=== PATIENT | female | born 1945 | race Two or more races ===

== ENCOUNTER 2020-10-27 14:37 | Inpatient (IN) | payer OTHER ==
[2020-10-27] MEDS ORDERED: VANCOMYCIN 1 GM in D5W (PRE-DOCKED) 1,000 MG/250 ML IVPB ONE (17:20)
[2020-10-27] MEDS ORDERED: PIPERACILLIN/TAZOB 3.375 GM 3.375 GM in DEXTROSE 5%-WATER - 50 ML IVPB ONE (17:22)
[2020-10-27] MEDS ORDERED: ACETAMINOPHEN 1000 MG/100 ML VIAL (NON FORMULARY) IVPB ONE (17:31)
[2020-10-27] MEDS ORDERED: VANCOMYCIN 1 GRAM (PRE-DOCKED) 1,000 MG/250 ML BAG IVPB ONE (17:40)
[2020-10-27] MEDS ORDERED: PIPERACILLIN/TAZOB 3.375 GM 3.375 GM/50 ML BAG IVPB ONE (17:40)
[2020-10-27] MEDS ORDERED: ACETAMINOPHEN INJECTION 100 ML IVPB ONE (19:55)
[2020-10-27 20:10] LABS: INR 1.06 (0.83-1.09)
[2020-10-27 20:13] LABS: ACTIVATED PTT 33.3 SECONDS (25.2-36.5)
[2020-10-27 20:18] LABS: BASO % 0.4 % (0-2.0); EOS % 0.3 % (0-4.5); HEMATOCRIT 31.3 % (32.4-45.2); HEMOGLOBIN 10.2 GM/dL (10.7-15.3); LYMPH % 33.8 % (8-40); MCH 26.8 pg (25.7-33.7); MCHC 32.7 g/dl (32.0-36.0); MEAN PLT VOLUME 8.2 fl (7.5-11.1); MONO % 5.5 % (3.8-10.2); PLATELET COUNT 275 10^3/uL (134-434); RBC 3.82 M/mm3 (3.60-5.2); RDW 16.5 % (11.6-15.6); WHITE BLOOD COUNT 10.6 K/mm3 (4.0-10.0)
[2020-10-27 20:21] LABS: CHLORIDE 102 mmol/L (98-107); SODIUM 138 mmol/L (136-145)
[2020-10-27 20:23] LABS: ALBUMIN 3.5 g/dl (3.4-5.0); ANION GAP 9 MMOL/L (8-16); CALCIUM 9.1 mg/dL (8.5-10.1); CO2 28 mmol/L (21-32)
[2020-10-27 20:24] LABS: GLUCOSE,RANDOM 121 mg/dL (74-106)
[2020-10-27 20:26] LABS: CREATININE 1.1 mg/dL (0.55-1.3); SGOT/AST 19 U/L (15-37); SGPT/ALT 19 U/L (13-61); URIC ACID 5.7 mg/dL (2.6-7.2)
[2020-10-27 20:28] LABS: BILIRUBIN,TOTAL 0.4 mg/dL (0.2-1); TOT PROT 7.9 g/dl (6.4-8.2)
[2020-10-27 20:29] LABS: ALK PHOS 89 U/L (45-117)
[2020-10-27] MEDS ORDERED: POLYETHYLENE GLYCOL 3350 119 GM BTL PO PRN (22:55)
[2020-10-28] MEDS ORDERED: ACETAMINOPHEN 325 MG TABLET (FP) PO PRN (01:00)
[2020-10-28] MEDS ORDERED: ALBUTEROL SO4 HFA INHALER IH PRN (01:52)
[2020-10-28] MEDS ORDERED: guaiFENesin/D-M SUGAR-FREE/ACLHOL-FREE 118 ML BOTTLE PO PRN (04:01)
[2020-10-28] MEDS ORDERED: ONDANSETRON *ODT* 4 MG TABLET SL PRN (04:03)
[2020-10-28] MEDS ORDERED: hydrALAZINE HCL 20 MG/ML VIAL IVPUSH PRN (04:59)
[2020-10-28] MEDS ORDERED: VANCOMYCIN 1 GRAM (PRE-DOCKED) 1,000 MG/250 ML BAG IVPB SCH ×3 (05:00→10:00)
[2020-10-28] MEDS ORDERED: HEPARIN NA (PORCINE) 5,000 UNITS/ML 1ML VIAL ONE (06:25)
[2020-10-28] MEDS ORDERED: PIPERACILLIN/TAZOB 3.375 GM 3.375 GM/50 ML BAG IVPB ONE (06:26)
[2020-10-28] MEDS: HEPARIN NA (PORCINE) 5,000 UNITS/ML 1ML VIAL SQ SCH ×3 (06:55→21:52)
[2020-10-28] MEDS: PIPERACILLIN/TAZOB 3.375 GM 3.375 GM in DEXTROSE 5%-WATER - 50 ML IVPB SCH ×4 (06:55→17:28)
[2020-10-28 07:55] LABS: BASO % 0.4 % (0-2.0); HEMATOCRIT 30.3 % (32.4-45.2); HEMOGLOBIN 9.8 GM/dL (10.7-15.3); LYMPH % 33.4 % (8-40); MCH 26.9 pg (25.7-33.7); MCHC 32.5 g/dl (32.0-36.0); MEAN CELL VOLUME 82.8 fl (80-96); MONO % 8.1 % (3.8-10.2); NEUT % 57.1 % (42.8-82.8); PLATELET COUNT 225 10^3/uL (134-434); RBC 3.66 M/mm3 (3.60-5.2); RDW 16.3 % (11.6-15.6); WHITE BLOOD COUNT 6.3 K/mm3 (4.0-10.0)
[2020-10-28 08:17] LABS: BLOOD UREA NITROGEN 12.1 mg/dL (7-18); CALCIUM 8.8 mg/dL (8.5-10.1)
[2020-10-28 08:21] LABS: CREATININE 0.9 mg/dL (0.55-1.3)
[2020-10-28] MEDS ORDERED: VANCOMYCIN 1 GM in D5W (PRE-DOCKED) 1,000 MG/250 ML IVPB SCH (10:00)
[2020-10-28] MEDS ORDERED: ESCITALOPRAM OXALATE 10 MG TABLET ONE (10:52)
[2020-10-28] MEDS ORDERED: DEXTROSE 5%-WATER - 50 ML IVPB ONE ×2 (10:53→17:21)
[2020-10-28] MEDS ORDERED: PIPERACILLIN/TAZOBACTAM 3.375 GM VIAL IVPB ONE ×2 (10:53→17:21)
[2020-10-28] MEDS: metoPROLOL SUCCINATE 25 MG TAB.SR.24H (FP) PO SCH (11:05)
[2020-10-28] MEDS: FERROUS SO4 325 MG TABLET (FP) PO SCH (11:05)
[2020-10-28] MEDS: ALLOPURINOL 100 MG TABLET (FP) PO SCH (11:05)
[2020-10-28] MEDS: LOSARTAN POTASSIUM 50 MG TABLET PO SCH (11:06)
[2020-10-28] MEDS: SOLIFENACIN SUCCINATE 5 MG TAB PO SCH (11:06)
[2020-10-28] MEDS: FUROSEMIDE 40 MG TABLET (FP) PO SCH (11:06)
[2020-10-28] MEDS: ASPIRIN 81 MG CHEWABLE TABLETS PO SCH (11:06)
[2020-10-28] MEDS: ROSUVASTATIN CA 40 MG TABLET PO SCH (11:06)
[2020-10-28] MEDS: PANTOPRAZOLE 40 MG TABLET PO SCH (11:06)
[2020-10-28] MEDS: ESCITALOPRAM OXALATE 20 MG TABLET PO SCH (11:07)
[2020-10-28] MEDS: LIDOCAINE 5% TOPICAL PATCH TP SCH (11:07)
[2020-10-28] MEDS: MAGNESIUM OXIDE 400 MG TABLET (FP) PO SCH (11:10)
[2020-10-28] MEDS: amLODIPine BESYLATE 5 MG TABLET (FP) PO SCH (11:10)
[2020-10-28] MEDS ORDERED: PT OWN MED DRAWER 7, Y5N ONE ×2 (11:20→18:15)
[2020-10-28] MEDS ORDERED: COLCHICINE 0.6 MG CAP PO ONE (11:32)
[2020-10-28 11:39] VITALS: BMI 37.0
[2020-10-28] MEDS: INSULIN SLIDING SCALE (NOVOLOG) 1 VIAL SQ SCH ×4 (11:57→22:05)
[2020-10-28] MEDS: LEVOTHYROXINE NA 150 MCG TABLET PO SCH (11:58)
[2020-10-28] MEDS: ROFLUMILAST 500 MCG TABLET PO SCH (13:33)
[2020-10-28] MEDS ORDERED: COLCHICINE 0.6 MG TAB PO ONE (15:00)
[2020-10-28] MEDS ORDERED: ARIPiprazole 5 MG TABLET ONE (20:43)
[2020-10-28] MEDS: MONTELUKAST NA 10 MG TABLET PO SCH (21:49)
[2020-10-28] MEDS: ARIPiprazole 10 MG TABLET PO SCH (21:49)
[2020-10-28] MEDS: MIRTAZAPINE 15 MG TABLET (FP) PO SCH (21:50)
[2020-10-28] MEDS: LIDOCAINE PATCH REMOVAL MC SCH (21:53)
[2020-10-28] MEDS: AMMONIUM LACTATE 12% LOTION 225 GM BOTTLE TP SCH (21:53)
[2020-10-28] MEDS: MELATONIN 1 MG TABLET PO SCH (21:53)
[2020-10-29] MEDS ORDERED: PIPERACILLIN/TAZOBACTAM 3.375 GM VIAL IVPB ONE ×4 (01:11→19:58)
[2020-10-29] MEDS ORDERED: DEXTROSE 5%-WATER - 50 ML IVPB ONE ×4 (01:12→19:58)
[2020-10-29] MEDS: PIPERACILLIN/TAZOB 3.375 GM 3.375 GM in DEXTROSE 5%-WATER - 50 ML IVPB SCH ×3 (01:15→20:23)
[2020-10-29] MEDS: LEVOTHYROXINE NA 150 MCG TABLET PO SCH (06:22)
[2020-10-29] MEDS: HEPARIN NA (PORCINE) 5,000 UNITS/ML 1ML VIAL SQ SCH ×3 (06:22→22:10)
[2020-10-29] MEDS: INSULIN SLIDING SCALE (NOVOLOG) 1 VIAL SQ SCH ×4 (06:31→23:05)
[2020-10-29] MEDS ORDERED: PT OWN MED DRAWER 7, Y5N ONE ×4 (08:09→18:32)
[2020-10-29] MEDS ORDERED: ESCITALOPRAM OXALATE 10 MG TABLET ONE (09:36)
[2020-10-29] MEDS: ASPIRIN 81 MG CHEWABLE TABLETS PO SCH (09:48)
[2020-10-29] MEDS: LOSARTAN POTASSIUM 50 MG TABLET PO SCH (09:49)
[2020-10-29] MEDS: ROSUVASTATIN CA 40 MG TABLET PO SCH (09:50)
[2020-10-29] MEDS: ROFLUMILAST 500 MCG TABLET PO SCH (09:50)
[2020-10-29] MEDS: FUROSEMIDE 40 MG TABLET (FP) PO SCH (09:51)
[2020-10-29] MEDS: FERROUS SO4 325 MG TABLET (FP) PO SCH (09:51)
[2020-10-29] MEDS: INDOMETHACIN 50 MG CAPSULE PO SCH ×3 (09:51→18:36)
[2020-10-29] MEDS: ESCITALOPRAM OXALATE 20 MG TABLET PO SCH (09:52)
[2020-10-29] MEDS: metoPROLOL SUCCINATE 25 MG TAB.SR.24H (FP) PO SCH (09:53)
[2020-10-29] MEDS: MAGNESIUM OXIDE 400 MG TABLET (FP) PO SCH (09:53)
[2020-10-29] MEDS: PANTOPRAZOLE 40 MG TABLET PO SCH (09:53)
[2020-10-29] MEDS: amLODIPine BESYLATE 5 MG TABLET (FP) PO SCH (09:53)
[2020-10-29] MEDS: ALLOPURINOL 100 MG TABLET (FP) PO SCH (09:53)
[2020-10-29] MEDS: LIDOCAINE 5% TOPICAL PATCH TP SCH (09:56)
[2020-10-29] MEDS: SOLIFENACIN SUCCINATE 5 MG TAB PO SCH (10:21)
[2020-10-29] MEDS: COLCHICINE 0.6 MG CAP PO SCH (11:31)
[2020-10-29] MEDS ORDERED: IRON SUCROSE INJECTION 300 MG in SODIUM CHLORIDE 235 ML IVPB ONE (15:00)
[2020-10-29] MEDS ORDERED: ARIPiprazole 5 MG TABLET ONE (20:46)
[2020-10-29] MEDS: AMMONIUM LACTATE 12% LOTION 225 GM BOTTLE TP SCH (22:10)
[2020-10-29] MEDS: LIDOCAINE PATCH REMOVAL MC SCH (22:10)
[2020-10-29] MEDS: MONTELUKAST NA 10 MG TABLET PO SCH (22:10)
[2020-10-29] MEDS: MELATONIN 1 MG TABLET PO SCH (23:05)
[2020-10-29] MEDS: ARIPiprazole 10 MG TABLET PO SCH (23:05)
[2020-10-29] MEDS: MIRTAZAPINE 15 MG TABLET (FP) PO SCH (23:05)
[2020-10-30] MEDS ORDERED: PIPERACILLIN/TAZOBACTAM 3.375 GM VIAL IVPB ONE ×2 (02:31→09:01)
[2020-10-30] MEDS ORDERED: DEXTROSE 5%-WATER - 50 ML IVPB ONE ×2 (02:31→09:01)
[2020-10-30] MEDS: PIPERACILLIN/TAZOB 3.375 GM 3.375 GM in DEXTROSE 5%-WATER - 50 ML IVPB SCH ×2 (02:44→09:35)
[2020-10-30] MEDS: HEPARIN NA (PORCINE) 5,000 UNITS/ML 1ML VIAL SQ SCH ×3 (06:48→14:27)
[2020-10-30] MEDS: LEVOTHYROXINE NA 150 MCG TABLET PO SCH (06:49)
[2020-10-30] MEDS: INSULIN SLIDING SCALE (NOVOLOG) 1 VIAL SQ SCH ×2 (07:04→12:23)
[2020-10-30] MEDS ORDERED: ESCITALOPRAM OXALATE 10 MG TABLET ONE (08:54)
[2020-10-30] MEDS: INDOMETHACIN 50 MG CAPSULE PO SCH ×2 (09:27→12:32)
[2020-10-30] MEDS: SOLIFENACIN SUCCINATE 5 MG TAB PO SCH (09:27)
[2020-10-30] MEDS: LIDOCAINE 5% TOPICAL PATCH TP SCH (09:27)
[2020-10-30] MEDS: FUROSEMIDE 40 MG TABLET (FP) PO SCH (09:28)
[2020-10-30] MEDS: PANTOPRAZOLE 40 MG TABLET PO SCH (09:28)
[2020-10-30] MEDS: FERROUS SO4 325 MG TABLET (FP) PO SCH (09:28)
[2020-10-30] MEDS: ALLOPURINOL 100 MG TABLET (FP) PO SCH (09:28)
[2020-10-30] MEDS: MAGNESIUM OXIDE 400 MG TABLET (FP) PO SCH (09:28)
[2020-10-30] MEDS: LOSARTAN POTASSIUM 50 MG TABLET PO SCH (09:28)
[2020-10-30] MEDS: ROSUVASTATIN CA 40 MG TABLET PO SCH (09:32)
[2020-10-30] MEDS: ESCITALOPRAM OXALATE 20 MG TABLET PO SCH (09:34)
[2020-10-30] MEDS: ROFLUMILAST 500 MCG TABLET PO SCH (09:34)
[2020-10-30] MEDS: metoPROLOL SUCCINATE 25 MG TAB.SR.24H (FP) PO SCH (09:35)
[2020-10-30] MEDS: amLODIPine BESYLATE 5 MG TABLET (FP) PO SCH (09:35)
[2020-10-30] MEDS: ASPIRIN 81 MG CHEWABLE TABLETS PO SCH (12:24)
[2020-10-30] MEDS: COLCHICINE 0.6 MG CAP PO SCH (12:25)
[2020-10-30 14:27] VITALS: BP 134/72; PULSE 63; TEMP 98.2
[2020-10-30] MEDS ORDERED: AMOX TR/POT CLAV 500MG/125MG TABLETS (FP) PO SCH (17:30)
== END 2020-10-30 17:36 | disposition home or self-care (01) | DRG 603 ==
LOC: JER 14:37 → JERBED 22:25 → J8W 10-28 09:33
PROVIDERS: ADMIT Internal Medicine; ATTEND Family Medicine
DX: L03.115 Cellulitis of right lower limb (principal); M10.9 Gout, unspecified; E11.9 Type 2 diabetes mellitus without complications; E03.9 Hypothyroidism, unspecified; I10 Essential (primary) hypertension; E78.5 Hyperlipidemia, unspecified
CPT/HCPCS: 36415; 71045-TC-FY; 80048; 80053; 82728; 82962; 83540; 83550; 84443; 84484; 84550; 85025; 85610; 85730; 86850; 86900; 86901; 87040; 93005; 93010; 93971-TC; 99285-25; C9803; J0131; J1644; J1756; U0003; U0005

== ENCOUNTER 2021-12-07 09:55 | Emergency (ER) | payer OTHER ==
[2021-12-07 10:04] VITALS: BP 144/70; PULSE 71; RESP 20; TEMP 97.6; BMI 35.5
== END 2021-12-07 11:11 | disposition home or self-care (01) ==
LOC: JERFT 09:55
DX: G56.02 Carpal tunnel syndrome, left upper limb (principal)
CPT/HCPCS: 99281-25; G0463-25

== ENCOUNTER 2022-03-09 11:14 | Inpatient (IN) | payer OTHER ==
[2022-03-09] MEDS ORDERED: LACTATED RINGERS SOLUTION 1000 ML INFUS.BAG IV ONE (12:49)
[2022-03-09] MEDS ORDERED: ACETAMINOPHEN 1000 MG/100 ML BAG IVPB ONE (12:49)
[2022-03-09] MEDS ORDERED: ONDANSETRON 4 MG/2 ML VIAL IVPUSH ONE (12:49)
[2022-03-09] MEDS ORDERED: ACETAMINOPHEN INJECTION 100 ML IVPB ONE (13:23)
[2022-03-09] MEDS ORDERED: ONDANSETRON 4 MG/2 ML VIAL ONE (13:23)
[2022-03-09 13:59] LABS: HEMATOCRIT 34.7 % (32.4-45.2); HEMOGLOBIN 11.2 GM/dL (10.7-15.3); MCH 26.9 pg (25.7-33.7); MCHC 32.4 g/dl (32.0-36.0); MEAN CELL VOLUME 82.8 fl (80-96); PLATELET COUNT 235 10^3/uL (134-434); RBC 4.19 M/mm3 (3.60-5.2); RDW 16.7 % (11.6-15.6); WHITE BLOOD COUNT 2.7 K/mm3 (4.0-10.0)
[2022-03-09 14:01] LABS: VENOUS BASE EXCESS -1.8 mmol/L (-2-2); VENOUS O2 SATURATION 24.4 % (70-80); VENOUS PCO2 50.1 mmHg (38-52); VENOUS PH 7.312 (7.310-7.410)
[2022-03-09 14:05] LABS: INR 1.21 (0.83-1.09)
[2022-03-09 14:07] LABS: ACTIVATED PTT 27.8 SECONDS (25.2-36.5)
[2022-03-09 14:36] LABS: ALBUMIN 3.1 g/dl (3.4-5.0); BLOOD UREA NITROGEN 41.3 mg/dL (7-18); CALCIUM 8.5 mg/dL (8.5-10.1); MAGNESIUM 1.3 mg/dL (1.8-2.4)
[2022-03-09 14:39] LABS: CREATININE 4.1 mg/dL (0.55-1.3)
[2022-03-09 14:40] LABS: TOT PROT 7.6 g/dl (6.4-8.2)
[2022-03-09 14:47] LABS: ANISOCYTOSIS 0; HELMET CELLS 0; HOWELL-JOLLY BODIES 0; MACROCYTOSIS 0; OVALOCYTE 0; ROULEAU 0; SICKELED CELLS 0; TARGET CELLS 0; TEAR DROP CELLS 0; TOXIC GRANULATION 0
[2022-03-09] MEDS ORDERED: MAGNESIUM SULF 50% (8.12 MEQ/2 ML-1 GM VIAL) IVPB ONE (15:00)
[2022-03-09] MEDS ORDERED: SODIUM CHLORIDE 0.9% 500 ML INFUS.BAG IV ONE (15:00)
[2022-03-09] MEDS ORDERED: MAGNESIUM SULFATE IN WATER 2 GM/50 ML IVPB IVPB ONE (15:17)
[2022-03-09] MEDS ORDERED: PIPERACILLIN/TAZOB 4.5 GM 4.5 GM in DEXTROSE 5%-WATER 100 ML IVPB ONE (16:13)
[2022-03-09] MEDS ORDERED: PIPERACILLIN/TAZOB 4.5 GM 4.5 GM/100 ML BAG IVPB ONE (16:19)
[2022-03-09] MEDS ORDERED: ALBUTEROL SO4 0.083% IH SOL 2.5 MG/3 ML VIAL.NEB. NEB PRN (16:28)
[2022-03-09] MEDS ORDERED: D5-1/2NS+20 MEQ KCL - 1,000 ML IV SCH (16:30)
[2022-03-09 16:54] LABS: CALCIUM 7.7 mg/dL (8.5-10.1)
[2022-03-09 16:55] LABS: BLOOD UREA NITROGEN 42.8 mg/dL (7-18)
[2022-03-09 16:58] LABS: CREATININE 3.8 mg/dL (0.55-1.3)
[2022-03-09] MEDS ORDERED: ONDANSETRON 4 MG/2 ML VIAL IVPUSH PRN (18:00)
[2022-03-09] MEDS ORDERED: PIPERACILLIN/TAZOB 2.25 GM 2.25 GM in DEXTROSE 5%-WATER - 50 ML IVPB SCH (18:00)
[2022-03-09] MEDS ORDERED: PANTOPRAZOLE SODIUM 40 MG VIAL ONE (18:11)
[2022-03-09] MEDS: PANTOPRAZOLE SODIUM 40 MG VIAL IVPUSH SCH (18:17)
[2022-03-09] MEDS ORDERED: INSULIN (NOVOLOG) ASPART 100 UNITS/ML 10ML VIAL SQ SCH (22:00)
[2022-03-09] MEDS ORDERED: MONTELUKAST NA 10 MG TABLET ONE (22:53)
[2022-03-09] MEDS ORDERED: RANOLAZINE E.R. 500 MG TABLET (FP) ONE (22:54)
[2022-03-09] MEDS ORDERED: MIRTAZAPINE 15 MG TABLET (FP) ONE (22:54)
[2022-03-09] MEDS ORDERED: HEPARIN NA (PORCINE) 5,000 UNITS/ML 1ML VIAL ONE (22:54)
[2022-03-09] MEDS ORDERED: ARIPiprazole 5 MG TABLET ONE (22:54)
[2022-03-09] MEDS: MIRTAZAPINE 15 MG TABLET (FP) PO SCH (23:01)
[2022-03-09] MEDS: ARIPiprazole 10 MG TABLET PO SCH (23:01)
[2022-03-09] MEDS: RANOLAZINE E.R. 500 MG TABLET (FP) PO SCH (23:01)
[2022-03-09] MEDS: HEPARIN NA (PORCINE) 5,000 UNITS/ML 1ML VIAL SQ SCH (23:01)
[2022-03-09] MEDS: MONTELUKAST NA 10 MG TABLET PO SCH (23:01)
[2022-03-10] MEDS ORDERED: PIPERACILLIN/TAZOB 2.25 GM 2.25 GM/50 ML BAG IVPB ONE ×3 (01:13→16:55)
[2022-03-10] MEDS: PIPERACILLIN/TAZOB 2.25 GM 2.25 GM in DEXTROSE 5%-WATER - 50 ML IVPB SCH ×3 (01:18→16:59)
[2022-03-10] MEDS ORDERED: HEPARIN NA (PORCINE) 5,000 UNITS/ML 1ML VIAL ONE ×2 (05:58→15:11)
[2022-03-10] MEDS: HEPARIN NA (PORCINE) 5,000 UNITS/ML 1ML VIAL SQ SCH ×2 (06:02→15:14)
[2022-03-10] MEDS: LEVOTHYROXINE NA 125 MCG TABLET (FP) PO SCH (08:00)
[2022-03-10] MEDS ORDERED: LEVOTHYROXINE NA 75 MCG TABLET (FP) ONE (08:44)
[2022-03-10] MEDS ORDERED: LEVOTHYROXINE NA 50 MCG TABLET (FP) ONE (08:44)
[2022-03-10] MEDS: INSULIN SLIDING SCALE (NOVOLOG) 1 VIAL SQ SCH ×3 (08:53→17:38)
[2022-03-10 09:13] LABS: HEMATOCRIT 28.4 % (32.4-45.2); HEMOGLOBIN 9.1 GM/dL (10.7-15.3); MCH 26.5 pg (25.7-33.7); MCHC 31.9 g/dl (32.0-36.0); MEAN PLT VOLUME 9.4 fl (7.5-11.1); PLATELET COUNT 165 10^3/uL (134-434); RBC 3.42 M/mm3 (3.60-5.2); RDW 17.2 % (11.6-15.6)
[2022-03-10 09:18] LABS: INR 1.34 (0.83-1.09); PROTHROMBIN TIME (PATIENT) 15.5 SEC (9.7-13.0); WHITE BLOOD COUNT 1.6 K/mm3 (4.0-10.0)
[2022-03-10 09:40] LABS: CALCIUM 7.7 mg/dL (8.5-10.1); PHOSPHOROUS 3.5 mg/dL (2.5-4.9)
[2022-03-10 09:41] LABS: ALBUMIN 2.7 g/dl (3.4-5.0); BLOOD UREA NITROGEN 41.8 mg/dL (7-18); MAGNESIUM 1.8 mg/dL (1.8-2.4)
[2022-03-10 09:42] LABS: BILIRUBIN,TOTAL 0.9 mg/dL (0.2-1); TOT PROT 6.4 g/dl (6.4-8.2)
[2022-03-10 09:44] LABS: CREATININE 2.8 mg/dL (0.55-1.3)
[2022-03-10] MEDS ORDERED: ESCITALOPRAM OXALATE 20 MG TABLET PO SCH (10:00)
[2022-03-10 10:15] LABS: ANISOCYTOSIS 0; HELMET CELLS 0; HOWELL-JOLLY BODIES 0; MACROCYTOSIS 0; OVALOCYTE 0; ROULEAU 0; SICKELED CELLS 0; TARGET CELLS 0; TEAR DROP CELLS 0; TOXIC GRANULATION 0
[2022-03-10] MEDS ORDERED: metoPROLOL SUCCINATE 25 MG TAB.SR.24H (FP) PO ONE (10:32)
[2022-03-10] MEDS ORDERED: RANOLAZINE E.R. 500 MG TABLET (FP) ONE (10:32)
[2022-03-10] MEDS ORDERED: PANTOPRAZOLE SODIUM 40 MG VIAL ONE (10:33)
[2022-03-10] MEDS: RANOLAZINE E.R. 500 MG TABLET (FP) PO SCH (10:38)
[2022-03-10] MEDS: PANTOPRAZOLE SODIUM 40 MG VIAL IVPUSH SCH (10:38)
[2022-03-10] MEDS: metoPROLOL SUCCINATE 25 MG TAB.SR.24H (FP) PO SCH (10:38)
[2022-03-10] MEDS: ALLOPURINOL 100 MG TABLET (FP) PO SCH (10:38)
[2022-03-10] MEDS ORDERED: SODIUM CHLORIDE 1,000 ML IV SCH (13:15)
[2022-03-10] MEDS: VANCOMYCIN 250 MG/5 ML ORAL SOLUTION PO SCH ×2 (15:00→19:05)
[2022-03-10] MEDS ORDERED: TBO-FILGRASTIM 480 MCG/0.8 ML DISP.SYRIN SQ ONE (16:40)
[2022-03-10] MEDS: ONDANSETRON 4 MG/2 ML VIAL IVPUSH SCH ×3 (16:45→21:20)
[2022-03-10] MEDS ORDERED: ONDANSETRON 4 MG/2 ML VIAL ONE ×2 (16:47→21:14)
[2022-03-10] MEDS: SODIUM CHLORIDE 0.9%/KCL 20 MEQ/1,000 ML INFUS.BAG IV SCH (17:37)
[2022-03-11] MEDS: PIPERACILLIN/TAZOB 2.25 GM 2.25 GM in DEXTROSE 5%-WATER - 50 ML IVPB SCH ×5 (00:07→21:34)
[2022-03-11] MEDS: RANOLAZINE E.R. 500 MG TABLET (FP) PO SCH ×3 (00:16→21:37)
[2022-03-11] MEDS: MIRTAZAPINE 15 MG TABLET (FP) PO SCH ×2 (00:16→21:36)
[2022-03-11] MEDS: MONTELUKAST NA 10 MG TABLET PO SCH ×2 (00:16→21:37)
[2022-03-11] MEDS: ARIPiprazole 10 MG TABLET PO SCH ×2 (00:18→21:37)
[2022-03-11] MEDS: HEPARIN NA (PORCINE) 5,000 UNITS/ML 1ML VIAL SQ SCH ×4 (00:18→21:36)
[2022-03-11] MEDS: ACETAMINOPHEN 325 MG TABLET (FP) PO PRN ×4 (00:23→21:45)
[2022-03-11] MEDS: ONDANSETRON 4 MG/2 ML VIAL IVPUSH SCH ×2 (02:51→06:47)
[2022-03-11] MEDS: VANCOMYCIN 250 MG/5 ML ORAL SOLUTION PO SCH ×4 (02:51→17:59)
[2022-03-11] MEDS ORDERED: ONDANSETRON 4 MG/2 ML VIAL IVPUSH PRN (04:00)
[2022-03-11 04:59] VITALS: BMI 35.2
[2022-03-11] MEDS: INSULIN SLIDING SCALE (NOVOLOG) 1 VIAL SQ SCH ×5 (06:48→21:49)
[2022-03-11] MEDS: LEVOTHYROXINE NA 125 MCG TABLET (FP) PO SCH (07:27)
[2022-03-11] MEDS: SODIUM CHLORIDE 0.9%/KCL 20 MEQ/1,000 ML INFUS.BAG IV SCH ×2 (08:10→14:15)
[2022-03-11 09:31] LABS: HEMATOCRIT 27.2 % (32.4-45.2); HEMOGLOBIN 8.9 GM/dL (10.7-15.3); MCHC 32.6 g/dl (32.0-36.0); MEAN CELL VOLUME 82.9 fl (80-96); MEAN PLT VOLUME 8.8 fl (7.5-11.1); PLATELET COUNT 140 10^3/uL (134-434); RBC 3.28 M/mm3 (3.60-5.2); RDW 16.8 % (11.6-15.6)
[2022-03-11 09:52] LABS: CALCIUM 7.3 mg/dL (8.5-10.1)
[2022-03-11 09:53] LABS: ALBUMIN 2.3 g/dl (3.4-5.0); BLOOD UREA NITROGEN 25.1 mg/dL (7-18)
[2022-03-11 09:56] LABS: CREATININE 1.5 mg/dL (0.55-1.3)
[2022-03-11 09:58] LABS: TOT PROT 5.7 g/dl (6.4-8.2)
[2022-03-11] MEDS ORDERED: TBO-FILGRASTIM 480 MCG/0.8 ML DISP.SYRIN SQ SCH (10:00)
[2022-03-11 10:01] LABS: BILIRUBIN,TOTAL 0.8 mg/dL (0.2-1)
[2022-03-11] MEDS: ALLOPURINOL 100 MG TABLET (FP) PO SCH (10:40)
[2022-03-11] MEDS: metoPROLOL SUCCINATE 25 MG TAB.SR.24H (FP) PO SCH (10:40)
[2022-03-11] MEDS: PANTOPRAZOLE SODIUM 40 MG VIAL IVPUSH SCH (10:41)
[2022-03-11] MEDS: TBO-FILGRASTIM 480 MCG/0.8 ML DISP.SYRIN SQ SCH (11:27)
[2022-03-11 14:51] LABS: ANISOCYTOSIS 0; HELMET CELLS 0; HOWELL-JOLLY BODIES 0; MACROCYTOSIS 0; OVALOCYTE 0; ROULEAU 0; SICKELED CELLS 0; TARGET CELLS 0; TEAR DROP CELLS 0; TOXIC GRANULATION 0
[2022-03-12] MEDS: VANCOMYCIN 250 MG/5 ML ORAL SOLUTION PO SCH ×4 (00:49→17:43)
[2022-03-12] MEDS: PIPERACILLIN/TAZOB 2.25 GM 2.25 GM in DEXTROSE 5%-WATER - 50 ML IVPB SCH ×4 (03:08→22:09)
[2022-03-12] MEDS: HEPARIN NA (PORCINE) 5,000 UNITS/ML 1ML VIAL SQ SCH ×3 (06:21→22:10)
[2022-03-12] MEDS: LEVOTHYROXINE NA 125 MCG TABLET (FP) PO SCH (06:22)
[2022-03-12] MEDS: INSULIN SLIDING SCALE (NOVOLOG) 1 VIAL SQ SCH ×3 (06:22→16:28)
[2022-03-12] MEDS: PANTOPRAZOLE SODIUM 40 MG VIAL IVPUSH SCH (09:13)
[2022-03-12] MEDS: metoPROLOL SUCCINATE 25 MG TAB.SR.24H (FP) PO SCH (09:17)
[2022-03-12] MEDS: RANOLAZINE E.R. 500 MG TABLET (FP) PO SCH ×2 (09:17→22:10)
[2022-03-12] MEDS: ALLOPURINOL 100 MG TABLET (FP) PO SCH (09:17)
[2022-03-12 09:21] LABS: HEMATOCRIT 27.9 % (32.4-45.2); HEMOGLOBIN 8.8 GM/dL (10.7-15.3); MCH 26.5 pg (25.7-33.7); MCHC 31.7 g/dl (32.0-36.0); MEAN CELL VOLUME 83.5 fl (80-96); MEAN PLT VOLUME 8.3 fl (7.5-11.1); PLATELET COUNT 157 10^3/uL (134-434); RBC 3.34 M/mm3 (3.60-5.2); RDW 17.1 % (11.6-15.6); WHITE BLOOD COUNT 13.1 K/mm3 (4.0-10.0)
[2022-03-12 10:45] LABS: ANISOCYTOSIS 0; HELMET CELLS 0; HOWELL-JOLLY BODIES 0; MACROCYTOSIS 0; OVALOCYTE 0; ROULEAU 0; SICKELED CELLS 0; TARGET CELLS 0; TEAR DROP CELLS 0; TOXIC GRANULATION 0
[2022-03-12] MEDS: SODIUM CHLORIDE 0.9%/KCL 20 MEQ/1,000 ML INFUS.BAG IV SCH ×2 (11:23→13:33)
[2022-03-12 11:57] LABS: CALCIUM 7.4 mg/dL (8.5-10.1)
[2022-03-12 11:58] LABS: ALBUMIN 2.3 g/dl (3.4-5.0); BLOOD UREA NITROGEN 8.9 mg/dL (7-18)
[2022-03-12 12:00] LABS: CREATININE 1.1 mg/dL (0.55-1.3)
[2022-03-12 12:02] LABS: BILIRUBIN,TOTAL 0.7 mg/dL (0.2-1); TOT PROT 5.6 g/dl (6.4-8.2)
[2022-03-12 12:16] LABS: PH,URINE 5.5 (5.0-8.0); URINE APPEARANCE CLEAR; URINE BILIRUBIN NEGATIVE (NEGATIVE); URINE COLOR YELLOW; URINE GLUCOSE (UA) TRACE (NEGATIVE); URINE KETONE NEGATIVE (NEGATIVE); URINE LEUK ESTERASE NEGATIVE (NEGATIVE); URINE NITRITE NEGATIVE (NEGATIVE); URINE PROTEIN TRACE (NEGATIVE); URINE UROBILINOGEN 0.2 mg/dL (0.2-1.0)
[2022-03-12] MEDS ORDERED: KCL 10 MEQ IVPB 10 MEQ/100 ML INFUS.BAG IVPB SCH (13:30)
[2022-03-12] MEDS ORDERED: POTASSIUM CHLORIDE TABS 20 MEQ TABLET.ER (FP) PO ONE (13:30)
[2022-03-12] MEDS: TBO-FILGRASTIM 480 MCG/0.8 ML DISP.SYRIN SQ SCH (13:41)
[2022-03-12] MEDS ORDERED: INSULIN (NOVOLOG) ASPART 100 UNITS/ML 10ML VIAL ONE (22:08)
[2022-03-12] MEDS: ARIPiprazole 10 MG TABLET PO SCH (22:10)
[2022-03-12] MEDS: MIRTAZAPINE 15 MG TABLET (FP) PO SCH (22:10)
[2022-03-12] MEDS: MONTELUKAST NA 10 MG TABLET PO SCH (22:10)
[2022-03-13] MEDS: INSULIN SLIDING SCALE (NOVOLOG) 1 VIAL SQ SCH ×5 (00:48→21:46)
[2022-03-13] MEDS: VANCOMYCIN 250 MG/5 ML ORAL SOLUTION PO SCH ×4 (01:13→18:18)
[2022-03-13] MEDS: PIPERACILLIN/TAZOB 2.25 GM 2.25 GM in DEXTROSE 5%-WATER - 50 ML IVPB SCH ×4 (04:10→21:31)
[2022-03-13] MEDS: HEPARIN NA (PORCINE) 5,000 UNITS/ML 1ML VIAL SQ SCH ×3 (06:14→21:32)
[2022-03-13] MEDS: LEVOTHYROXINE NA 125 MCG TABLET (FP) PO SCH (06:18)
[2022-03-13] MEDS ORDERED: TBO-FILGRASTIM 480 MCG/0.8 ML DISP.SYRIN SQ SCH (10:00)
[2022-03-13] MEDS: ROSUVASTATIN CA 20 MG TABLET PO SCH (10:58)
[2022-03-13] MEDS: metoPROLOL SUCCINATE 25 MG TAB.SR.24H (FP) PO SCH (10:58)
[2022-03-13] MEDS: ALLOPURINOL 100 MG TABLET (FP) PO SCH (10:58)
[2022-03-13] MEDS: RANOLAZINE E.R. 500 MG TABLET (FP) PO SCH ×2 (10:58→21:32)
[2022-03-13] MEDS: PANTOPRAZOLE SODIUM 40 MG VIAL IVPUSH SCH (10:59)
[2022-03-13 11:43] LABS: HEMATOCRIT 30.6 % (32.4-45.2); HEMOGLOBIN 9.6 GM/dL (10.7-15.3); MCHC 31.5 g/dl (32.0-36.0); MEAN CELL VOLUME 82.6 fl (80-96); MEAN PLT VOLUME 8.7 fl (7.5-11.1); PLATELET COUNT 183 10^3/uL (134-434); WHITE BLOOD COUNT 29.6 K/mm3 (4.0-10.0)
[2022-03-13] MEDS ORDERED: POTASSIUM CHLORIDE TABS 20 MEQ TABLET.ER (FP) PO ONE ×2 (12:05→15:30)
[2022-03-13 12:06] LABS: CALCIUM 7.7 mg/dL (8.5-10.1)
[2022-03-13 12:07] LABS: ALBUMIN 2.6 g/dl (3.4-5.0); BLOOD UREA NITROGEN 3.9 mg/dL (7-18)
[2022-03-13 12:11] LABS: BILIRUBIN,TOTAL 0.7 mg/dL (0.2-1)
[2022-03-13] MEDS: SODIUM CHLORIDE 0.9%/KCL 20 MEQ/1,000 ML INFUS.BAG IV SCH (12:32)
[2022-03-13 12:35] LABS: ANISOCYTOSIS 2+; MACROCYTOSIS 0
[2022-03-13] MEDS: MIRTAZAPINE 15 MG TABLET (FP) PO SCH (21:31)
[2022-03-13] MEDS: MONTELUKAST NA 10 MG TABLET PO SCH (21:32)
[2022-03-13] MEDS: ARIPiprazole 10 MG TABLET PO SCH (21:32)
[2022-03-14] MEDS: VANCOMYCIN 250 MG/5 ML ORAL SOLUTION PO SCH ×4 (00:44→17:09)
[2022-03-14] MEDS: PIPERACILLIN/TAZOB 2.25 GM 2.25 GM in DEXTROSE 5%-WATER - 50 ML IVPB SCH ×4 (03:52→21:00)
[2022-03-14] MEDS: HEPARIN NA (PORCINE) 5,000 UNITS/ML 1ML VIAL SQ SCH ×3 (06:09→21:43)
[2022-03-14] MEDS: LEVOTHYROXINE NA 125 MCG TABLET (FP) PO SCH (06:09)
[2022-03-14] MEDS: INSULIN SLIDING SCALE (NOVOLOG) 1 VIAL SQ SCH ×4 (06:34→21:42)
[2022-03-14] MEDS: SODIUM CHLORIDE 0.9%/KCL 20 MEQ/1,000 ML INFUS.BAG IV SCH ×2 (06:39→11:32)
[2022-03-14] MEDS: metoPROLOL SUCCINATE 25 MG TAB.SR.24H (FP) PO SCH (09:11)
[2022-03-14] MEDS: PANTOPRAZOLE SODIUM 40 MG VIAL IVPUSH SCH (09:11)
[2022-03-14] MEDS: ALLOPURINOL 100 MG TABLET (FP) PO SCH (09:11)
[2022-03-14] MEDS: ROSUVASTATIN CA 20 MG TABLET PO SCH (09:11)
[2022-03-14] MEDS: RANOLAZINE E.R. 500 MG TABLET (FP) PO SCH ×2 (09:12→21:44)
[2022-03-14 10:48] VITALS: RESP 18
[2022-03-14] MEDS: MIRTAZAPINE 15 MG TABLET (FP) PO SCH (21:44)
[2022-03-14] MEDS: ARIPiprazole 10 MG TABLET PO SCH (21:45)
[2022-03-14] MEDS: MONTELUKAST NA 10 MG TABLET PO SCH (21:45)
[2022-03-15] MEDS: PIPERACILLIN/TAZOB 2.25 GM 2.25 GM in DEXTROSE 5%-WATER - 50 ML IVPB SCH ×4 (03:00→21:30)
[2022-03-15] MEDS: HEPARIN NA (PORCINE) 5,000 UNITS/ML 1ML VIAL SQ SCH ×3 (06:08→21:30)
[2022-03-15] MEDS: INSULIN SLIDING SCALE (NOVOLOG) 1 VIAL SQ SCH ×4 (06:09→21:30)
[2022-03-15] MEDS: LEVOTHYROXINE NA 125 MCG TABLET (FP) PO SCH (06:09)
[2022-03-15] MEDS: VANCOMYCIN 250 MG/5 ML ORAL SOLUTION PO SCH ×4 (06:10→18:21)
[2022-03-15] MEDS: metoPROLOL SUCCINATE 25 MG TAB.SR.24H (FP) PO SCH (10:20)
[2022-03-15] MEDS: ALLOPURINOL 100 MG TABLET (FP) PO SCH (10:20)
[2022-03-15] MEDS: ROSUVASTATIN CA 20 MG TABLET PO SCH (10:20)
[2022-03-15] MEDS: RANOLAZINE E.R. 500 MG TABLET (FP) PO SCH ×2 (10:21→21:31)
[2022-03-15] MEDS: PANTOPRAZOLE SODIUM 40 MG VIAL IVPUSH SCH (10:21)
[2022-03-15 11:01] LABS: HEMATOCRIT 30.7 % (32.4-45.2); HEMOGLOBIN 9.6 GM/dL (10.7-15.3); MCHC 31.4 g/dl (32.0-36.0); MEAN CELL VOLUME 82.9 fl (80-96); MEAN PLT VOLUME 7.7 fl (7.5-11.1); PLATELET COUNT 138 10^3/uL (134-434); RDW 17.7 % (11.6-15.6); WHITE BLOOD COUNT 22.9 K/mm3 (4.0-10.0)
[2022-03-15 12:13] LABS: CHLORIDE 102 mmol/L (98-107); SODIUM 138 mmol/L (136-145)
[2022-03-15 12:27] LABS: ALBUMIN 2.5 g/dl (3.4-5.0); ANION GAP 11 MMOL/L (8-16); CO2 26 mmol/L (21-32); GLUCOSE,RANDOM 191 mg/dL (74-106)
[2022-03-15 12:30] LABS: SGOT/AST 34 U/L (15-37); SGPT/ALT 28 U/L (13-61)
[2022-03-15 12:31] LABS: BILIRUBIN,TOTAL 0.6 mg/dL (0.2-1); TOT PROT 5.8 g/dl (6.4-8.2)
[2022-03-15 12:33] LABS: ALK PHOS 119 U/L (45-117)
[2022-03-15] MEDS ORDERED: KCL 10 MEQ IVPB 10 MEQ/100 ML INFUS.BAG IVPB SCH (12:45)
[2022-03-15 12:53] LABS: BLOOD UREA NITROGEN 2.7 mg/dL (7-18); CALCIUM 6.9 mg/dL (8.5-10.1)
[2022-03-15] MEDS ORDERED: CALCIUM GLUCONATE IN NACL 1 GM/50 ML BAG IVPB ONE (13:02)
[2022-03-15 13:50] LABS: MAGNESIUM 0.7 mg/dL (1.8-2.4)
[2022-03-15] MEDS: SODIUM CHLORIDE 0.9%/KCL 20 MEQ/1,000 ML INFUS.BAG IV SCH (13:59)
[2022-03-15] MEDS ORDERED: POTASSIUM CHLORIDE TABS 20 MEQ TABLET.ER (FP) PO ONE ×2 (14:00→16:48)
[2022-03-15] MEDS ORDERED: MAGNESIUM 1GM/D5W 100ML - 100 ML IVPB IVPB ONE (14:00)
[2022-03-15] MEDS: CALCIUM 500MG/VIT-D 200 UNITS COMBO TABLET (FP) PO SCH (14:12)
[2022-03-15] MEDS ORDERED: MAGNESIUM SULF 50% (8.12 MEQ/2 ML-1 GM VIAL) IVPB ONE (16:46)
[2022-03-15] MEDS: MIRTAZAPINE 15 MG TABLET (FP) PO SCH (21:31)
[2022-03-15] MEDS: MONTELUKAST NA 10 MG TABLET PO SCH (21:31)
[2022-03-15] MEDS: ARIPiprazole 10 MG TABLET PO SCH (22:53)
[2022-03-16] MEDS: VANCOMYCIN 250 MG/5 ML ORAL SOLUTION PO SCH ×3 (00:17→11:49)
[2022-03-16] MEDS: PIPERACILLIN/TAZOB 2.25 GM 2.25 GM in DEXTROSE 5%-WATER - 50 ML IVPB SCH ×3 (04:04→14:34)
[2022-03-16] MEDS: LEVOTHYROXINE NA 125 MCG TABLET (FP) PO SCH (06:17)
[2022-03-16] MEDS: HEPARIN NA (PORCINE) 5,000 UNITS/ML 1ML VIAL SQ SCH ×2 (06:18→14:09)
[2022-03-16] MEDS: SODIUM CHLORIDE 0.9%/KCL 20 MEQ/1,000 ML INFUS.BAG IV SCH ×2 (06:18→14:08)
[2022-03-16] MEDS: INSULIN SLIDING SCALE (NOVOLOG) 1 VIAL SQ SCH ×2 (06:20→11:24)
[2022-03-16] MEDS: RANOLAZINE E.R. 500 MG TABLET (FP) PO SCH (09:56)
[2022-03-16] MEDS: metoPROLOL SUCCINATE 25 MG TAB.SR.24H (FP) PO SCH (09:56)
[2022-03-16] MEDS: ROSUVASTATIN CA 20 MG TABLET PO SCH (09:56)
[2022-03-16] MEDS: PANTOPRAZOLE SODIUM 40 MG VIAL IVPUSH SCH (09:56)
[2022-03-16] MEDS: ALLOPURINOL 100 MG TABLET (FP) PO SCH (09:56)
[2022-03-16] MEDS: CALCIUM 500MG/VIT-D 200 UNITS COMBO TABLET (FP) PO SCH (09:56)
[2022-03-16 11:17] LABS: HEMATOCRIT 28.4 % (32.4-45.2); HEMOGLOBIN 9.3 GM/dL (10.7-15.3); MCHC 32.7 g/dl (32.0-36.0); MEAN CELL VOLUME 82.6 fl (80-96); MEAN PLT VOLUME 8.2 fl (7.5-11.1); PLATELET COUNT 140 10^3/uL (134-434); RBC 3.44 M/mm3 (3.60-5.2); RDW 17.4 % (11.6-15.6); WHITE BLOOD COUNT 18.4 K/mm3 (4.0-10.0)
[2022-03-16 11:32] LABS: CHLORIDE 102 mmol/L (98-107); SODIUM 139 mmol/L (136-145)
[2022-03-16 11:45] LABS: ANION GAP 9 MMOL/L (8-16); CO2 28 mmol/L (21-32); GLUCOSE,RANDOM 167 mg/dL (74-106); MAGNESIUM 1.1 mg/dL (1.8-2.4)
[2022-03-16 11:48] LABS: CREATININE 0.9 mg/dL (0.55-1.3)
[2022-03-16 12:32] LABS: BLOOD UREA NITROGEN 2.1 mg/dL (7-18); CALCIUM 6.8 mg/dL (8.5-10.1)
[2022-03-16 14:43] VITALS: BP 158/97; PULSE 88; TEMP 98
[2022-03-16] MEDS ORDERED: POTASSIUM CHLORIDE TABS 20 MEQ TABLET.ER (FP) PO ONE (15:28)
[2022-03-16] MEDS ORDERED: MAGNESIUM OXIDE 400 MG TABLET (FP) PO ONE (15:28)
[2022-03-16] MEDS ORDERED: CALCITRIOL 0.25 MCG CAPSULE (FP) PO ONE (15:29)
[2022-03-16] MEDS ORDERED: CALCIUM 500MG/VIT-D 200 UNITS COMBO TABLET (FP) PO SCH (15:30)
== END 2022-03-16 15:24 | disposition home or self-care (01) | DRG 392 ==
LOC: JER 11:14 → JERBED 15:04 → J6S 03-10 21:54
PROVIDERS: ADMIT Family Medicine; ATTEND Family Medicine
DX: K57.92 Diverticulitis of intestine, part unspecified, without perforation or abscess without bleeding (principal); A04.72 Enterocolitis due to Clostridium difficile, not specified as recurrent; C16.9 Malignant neoplasm of stomach, unspecified; N17.9 Acute kidney failure, unspecified; E87.1 Hypo-osmolality and hyponatremia; T45.1X5A Adverse effect of antineoplastic and immunosuppressive drugs, initial encounter; D70.9 Neutropenia, unspecified; E87.5 Hyperkalemia; I10 Essential (primary) hypertension; E78.5 Hyperlipidemia, unspecified; E11.9 Type 2 diabetes mellitus without complications; E03.9 Hypothyroidism, unspecified; E83.42 Hypomagnesemia; R50.81 Fever presenting with conditions classified elsewhere; N28.1 Cyst of kidney, acquired; G62.9 Polyneuropathy, unspecified; Y92.89 Other specified places as the place of occurrence of the external cause; E66.9 Obesity, unspecified; Z68.35 Body mass index [BMI] 35.0-35.9, adult; E86.0 Dehydration
CPT/HCPCS: 0241U-QW; 36415; 70450-TC; 74176-TC; 76775-TC; 80048; 80053; 81003; 82010; 82436; 82570; 82728; 82803; 82962; 83540; 83550; 83690; 83735; 84100; 84133; 84300; 84439; 84443; 84484; 85025; 85027; 85610; 85730; 87040; 87086; 87324; 87449; 97116-GP; 99285-25; J1447; J1644